=== PATIENT | male | born 1990 ===

== ENCOUNTER 2019-03-26 11:50 | Emergency (ER) | payer OTHER ==
[2019-03-26 12:17] VITALS: BP 132/81
--- NOTE | 2019-03-26 12:17 | Event Note ---
ED Screening Note ED Screening Note: Pt presents with generalized abd pain states it comes and goes has increased gas and belching no nausea, no vomiting, no diarrhea took tylenol, no other tx tried PSHx: appendectomy This initial assessment/diagnostic orders/clinical plan/treatment(s) is/are subject to change based on patients health status, clinical progression and re- assessment by fellow clinical providers in the ED. Further treatment and workup at subsequent clinical providers discretion. Patient/guardian urged not to elope from the ED as their condition may be serious if not clinically assessed and managed. Initial orders include: XR abdomen
--- NOTE | 2019-03-26 12:54 | XRay Report ---
ABDOMEN 2 VIEW(S) INDICATION / CLINICAL INFORMATION: abdominal discomfort, increased gas/belching. COMPARISON: None available. FINDINGS: TUBES / LINES: None. BOWEL GAS PATTERN: No significant abnormality. FREE AIR / EXTRALUMINAL GAS: None seen. ADDITIONAL FINDINGS: No significant additional findings. IMPRESSION: 1. No significant abnormality. Signer Name: Luis Mancera MD Signed: 03/26/2019 12:50 PM Workstation Name: [id number]
--- NOTE | 2019-03-26 13:01 | Emergency Department Report ---
ED Abdominal Pain HPI - General Chief Complaint: Abdominal Pain Stated Complaint: FEVER/STOMACH PAIN Time Seen by Provider: 03/26/19 12:15 Source: patient Mode of arrival: Ambulatory Limitations: No Limitations - History of Present Illness MD Complaint: abdominal pain Location: diffuse Radiation: none Migration to: no migration Severity: mild Severity scale (0 -10): 3 Quality: cramping Consistency: intermittent Associated Symptoms: nausea. denies: vomiting, diarrhea, fever, chills, constipation, dysuria, hematuria - Related Data Previous Rx's Medication Instructions Recorded Last Taken Type Dicyclomine [Bentyl] 20 mg PO BID #20 tablet 03/26/19 Unknown Rx Famotidine [Pepcid] 20 mg PO BID #20 tablet 03/26/19 Unknown Rx Allergies Allergy/AdvReac Type Severity Reaction Status Date / Time No Known Allergies Allergy Unverified 03/26/19 11:51 ED Review of Systems ROS: Stated complaint: FEVER/STOMACH PAIN Other details as noted in HPI Comment: All other systems reviewed and negative ED Past Medical Hx - Past Medical History Previous Medical History?: Yes - Surgical History Hx Appendectomy: Yes Additional Surgical History: JAW, left thumb amp - Social History Smoking Status: Never Smoker Substance Use Type: None - Medications Home Medications: Home Medications Medication Instructions Recorded Confirmed Last Taken Type Dicyclomine [Bentyl] 20 mg PO BID #20 tablet 03/26/19 Unknown Rx Famotidine [Pepcid] 20 mg PO BID #20 tablet 03/26/19 Unknown Rx ED Physical Exam - General Limitations: No Limitations General appearance: alert, in no apparent distress - Head Head exam: Present: atraumatic, normocephalic - Eye Eye exam: Present: normal appearance - ENT ENT exam: Present: mucous membranes moist - Neck Neck exam: Present: normal inspection - Respiratory Respiratory exam: Present: normal lung sounds bilaterally. Absent: respiratory distress - Cardiovascular Cardiovascular Exam: Present: regular rate, normal rhythm. Absent: systolic murmur, diastolic murmur, rubs, gallop - GI/Abdominal GI/Abdominal exam: Present: soft, normal bowel sounds. Absent: distended, tenderness, guarding, rebound, mass, bruit - Rectal Rectal exam: Present: deferred - Extremities Exam Extremities exam: Present: normal inspection - Back Exam Back exam: Present: normal inspection - Neurological Exam Neurological exam: Present: alert, oriented X3 - Psychiatric Psychiatric exam: Present: normal affect, normal mood - Skin Skin exam: Present: warm, dry, intact, normal color. Absent: rash ED Course Vital Signs 03/26/19 12:15 Temperature 98.4 F Pulse Rate 99 H Respiratory 18 Rate Blood Pressure 132/81 O2 Sat by Pulse 97 Oximetry ED Medical Decision Making - Radiology Data Radiology results: report reviewed, image reviewed OMPARISON: None available. FINDINGS: TUBES / LINES: None. BOWEL GAS PATTERN: No significant abnormality. FREE AIR / EXTRALUMINAL GAS: None seen. ADDITIONAL FINDINGS: No significant additional findings. IMPRESSION: 1. No significant abnormality. Signer Name: Luis Mancera MD Signed: 03/26/2019 12:50 PM Workstation Name: [id number] Transcribed By: MAGO Dictated By: Luis Mancera MD Electronically Authenticated By: Luis Mancera MD Signed Date/Time: 03/26/19 1250 - Medical Decision Making This 29-year-old male presents with gastroenteritis. Critical care attestation.: If time is entered above; I have spent that time in minutes in the direct care of this critically ill patient, excluding procedure time. ED Disposition Clinical Impression: Gastroenteritis Disposition: DC-01 TO HOME OR SELFCARE Is pt being admited?: No Does the pt Need Aspirin: No Condition: Stable Instructions: Gastroenteritis (ED) Additional Instructions: Make sure to follow up with the primary care physician as discussed. Take all your medications as you've been prescribed. If you have any worsening symptoms or develop new symptoms please return to ED immediately. Prescriptions: Dicyclomine [Bentyl] 20 mg PO BID #20 tablet Famotidine [Pepcid] 20 mg PO BID #20 tablet Referrals: [facility] [Outside] - 3-5 Days [facility] [Outside] - 3-5 Days Forms: Accompanied Note, Work/School Release Form(ED) Time of Disposition: 13:39
[2019-03-26] MEDS ORDERED: BENTYL PO ONE (13:04)
[2019-03-26] MEDS ORDERED: PEPCID PO ONE (13:04)
== END 2019-03-26 14:10 | disposition home or self-care (01) ==
LOC: ED 11:50
DX: K52.9 Noninfective gastroenteritis and colitis, unspecified (principal); Z90.49 Acquired absence of other specified parts of digestive tract; Z79.899 Other long term (current) drug therapy
CPT/HCPCS: 74019; 99283

== ENCOUNTER 2022-04-02 20:47 | Emergency (ER) | payer MEDICAID ==
[2022-04-03] MEDS ORDERED: NORepinephrine/NS 8 MG-250 ML 8 MG/250 ML INFUS..BTL IV ONE (00:55)
== END 2022-04-03 01:48 ==
LOC: ED 20:47
DX: R21 Rash and other nonspecific skin eruption (principal); Z53.21 Procedure and treatment not carried out due to patient leaving prior to being seen by health care provider
CPT/HCPCS: J2354